=== PATIENT | male | born 2000 | race Caucasian/White ===

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

== ENCOUNTER 2018-09-27 21:36 | Emergency (ER) | payer SELFPAY ==
[~2018-09-27] VITALS: Ht 167.6 cm; Wt 79.8 kg
[2018-09-27 21:48] VITALS: Ht 167.6 cm; Wt 79.8 kg
[2018-09-28 00:01] VITALS: BP 149/81
== END 2018-09-28 00:01 | disposition home or self-care (01) ==
LOC: ED 21:36
DX: J40 Bronchitis, not specified as acute or chronic (principal); J02.9 Acute pharyngitis, unspecified; Z88.0 Allergy status to penicillin